=== PATIENT | female | born 1975 | race Caucasian/White ===

== ENCOUNTER 2019-11-26 12:36 | Emergency (ER) | payer OTHER ==
[~2019-11-26] VITALS: Ht 167.6 cm; Wt 70.3 kg
[2019-11-26 12:39] VITALS: BP 155/75
[2019-11-26 12:44] VITALS: BP 155/75
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
--- NOTE | 2019-11-26 12:45 | NUR ---
ARRIVAL PATIENT ARRIVED TO ED5 VIA GURNEY BY [facility], C/O OF COUGH AND SHORTNESS OF BREATH SINCE YESTERDAY, EMS ATTEMPTED TO IV WITHOUT SUCCESS, DID GIVE XOPENEX BREATHING TREATMENT X2 AND SOLUMEDROL 125MG IM, WAS BROUGHT TO THE ED FOR FURTHER EVAL.
--- NOTE | 2019-11-26 13:09 | DIREP ---
PROCEDURE:CHEST 1 VIEW COMPARISON:None. INDICATIONS:cough FINDINGS: LUNGS/PLEURA:No significant pulmonary parenchymal abnormalities. No effusions. VASCULATURE:Normal. Unremarkable pulmonary vasculature. CARDIAC:Normal. No cardiac silhouette abnormality or cardiomegaly. MEDIASTINUM:Normal. No visible mass or adenopathy. BONES:Normal. No fracture or visible bony lesion. OTHER:Negative. CONCLUSION:No acute cardiopulmonary abnormality. Dictated by: Justice Celestin M.D. on 11/26/2019 at 01:06 PM
[2019-11-26 13:15] VITALS: BP 121/72
== END 2019-11-26 13:21 | disposition home or self-care (01) ==
LOC: EDBD 12:36 → ER 12:36
DX: J44.9 Chronic obstructive pulmonary disease, unspecified (principal); Z88.6 Allergy status to analgesic agent; Z88.8 Allergy status to other drugs, medicaments and biological substances
CPT/HCPCS: 71045; 99283